=== PATIENT | female | born 1975 | race Caucasian/White ===

== ENCOUNTER 2016-08-08 01:05 | Emergency (ER) | payer BC ==
[~2016-08-08] VITALS: Ht 162.6 cm; Wt 63.5 kg
[2016-08-08 02:07] LABS: EOSINOPHILS % (AUTO) 5.6 % (0.0-3.0); LYMPHOCYTES % (AUTO) 19.1 % (20.0-45.0); MEAN CORPUSCULAR HEMOGLOBIN 30.1 PG (27.0-31.0); MEAN CORPUSCULAR HGB CONC 32.9 G/DL (32.0-36.0); MEAN CORPUSCULAR VOLUME 92 FL (80-99); MEAN PLATELET VOLUME 6.6 FL (6.5-10.1); MONOCYTES % (AUTO) 7.8 % (1.0-10.0); NEUTROPHILS % (AUTO) 66.5 % (45.0-75.0); PLATELET COUNT 250 K/UL (150-450); RED BLOOD COUNT 4.52 M/UL (4.20-5.40); RED CELL DISTRIBUTION WIDTH 11.9 % (11.6-14.8); WHITE BLOOD COUNT 9.7 K/UL (4.8-10.8)
--- NOTE | 2016-08-08 02:07 | Emergency Room Report ---
History of Present Illness General Chief Complaint: Chest Pain Source: Patient, EMS Present Illness HPI Is a 41-year-old female has no past medical history. She presents with chief complaint of possible allergic reaction and chest pressure palpitation. A week ago she had severe sore throat and fever. She took azithromycin as enough a brother. She took it and wasn't getting any better. She went to urgent care last night and receive a shot of Rocephin and Toradol. she said that the rapid strep was negative. Throat culture was sent. She said the swelling in her throat got better. She was prescribed Augmentin but she has not filled it yet. She woke up tonight feeling weak and has palpitation. Gill lightheaded. Gill numbness. Denies any rash or denies any fever or chills. No other complaint. Allergies: Coded Allergies: No Known Allergies (Unverified , 08/08/16) Patient History Past Medical History: none, see triage record, old chart reviewed Past Surgical History: none Pertinent Family History: none Social History: Denies: smoking Last Menstrual Period: "3 WEEKS AGO" Now: No Immunizations: other Reviewed Nursing Documentation: PMH: Agreed, PSxH: Agreed Nursing Documentation-PMH Past Medical History: No Stated History Review of Systems Constitutional: Reports: malaise Eye: Denies: blurred vision, eye pain ENT: Denies: ear pain, nose congestion, throat swelling Respiratory: Denies: cough, shortness of breath Cardiovascular: Reports: palpitations, Denies: chest pain Gastrointestinal: Denies: abdominal pain, diarrhea, nausea, vomiting Musculoskeletal: Denies: back pain, joint pain Skin: Denies: rash Neurological: Denies: headache, numbness Endocrine: Denies: increased thirst, increased urine Hematologic/Lymphatic: Denies: easy bruising All Other Systems: negative except mentioned in HPI Physical Exam Vital Signs Date Time Temp Pulse Resp B/P Pulse Ox O2 Delivery O2 Flow Rate FiO2 08/08/16 01:06 90 18 118/74 100 Room Air vitals normal Sp02 EP Interpretation: reviewed, normal General Appearance: well appearing, no apparent distress, alert Head: normocephalic, atraumatic Eyes: bilateral eye EOMI, bilateral eye PERRL ENT: hearing grossly normal, normal pharynx Neck: full range of motion, supple, no meningismus Respiratory: chest non-tender, lungs clear, normal breath sounds Cardiovascular #1: regular rate, rhythm, no murmur Gastrointestinal: normal bowel sounds, non tender, no mass, no organomegaly, no bruit, non-distended Musculoskeletal: back normal, gait/station normal, normal range of motion Psychiatric: mood/affect normal Skin: warm/dry Medical Decision Making Diagnostic Impression: Primary Impression: Weakness generalized Additional Impressions: Adverse drug effect Qualified Codes: T88.7XXA - Unspecified adverse effect of drug or medicament, initial encounter Acute tonsillitis Qualified Codes: J03.90 - Acute tonsillitis, unspecified ER Course Patient presents with palpitation and chest tightness. She took a picture her tonsils a week ago. They were enlarged, erythematous and had thick membranous exudates. the fact that she had a negative strep meeting this is more mononucleosis. She receive IV fluid here. Just as it was running she complaining of palpitations. On a monitor her heart rate went from the 80s to 90s. Blood pressure was normal. She thinks that is causing her symptoms worsen. I explained to her that this is normal saline and is not the cause. EKG Diagnostic Results Rate: normal Rhythm: NSR ST Segments: no acute changes Rhythm Strip Diag. Results EP Interpretation: yes Rate: 72 Rhythm: NSR, no PVC's, no ectopy Chest X-Ray Diagnostic Results EP Interpretation: Yes Findings: no consolidation, no effusion, no pneumothorax, no acute cardiopulmonary disease Number of Views: 1 Last Vital Signs Date Time Temp Pulse Resp B/P Pulse Ox O2 Delivery O2 Flow Rate FiO2 08/08/16 01:16 90 18 Room Air 08/08/16 01:06 118/74 100 Status: improved Disposition: HOME, SELF-CARE Condition: Stable Additional Instructions: Rest. Increase fluids. Followup with throat culture from urgent care. Return if symptom worsen. Followup with your DrLeticia in 7 days. ALEXIS MARTINES M.D. Aug 08, 2016 02:07
[2016-08-08 02:11] VITALS: BP 116/74
[2016-08-08 02:27] LABS: ANION GAP 14 (5-15); CALCIUM 8.8 mg/dL (8.6-10.2); CARBON DIOXIDE 24 mEQ/L (20-30); CHLORIDE 98 mEQ/L (98-107); CREATININE 0.8 mg/dL (0.5-0.9); GLOMERULAR FILTRATION RATE > 60 mL/min (>60); HEMOLYSIS 0; POTASSIUM 3.7 mEQ/L (3.4-4.9); SODIUM 136 mEQ/L (135-145)
[2016-08-08 03:51] VITALS: BP 101/64
--- NOTE | 2016-08-08 09:58 | Diagnostic Imaging Report ---
Indication: CP Technique: XRAY CHEST 1 V Comparison: None. Findings: The cardiomediastinal silhouette is normal. The lungs are clear. There is no evidence of pleural fluid. The bones are unremarkable. Impression: Normal chest.
--- NOTE | 2016-08-12 00:28 | Cardiology Report ---
APPROVED REPORT EKG Measurement Heart [id number] Normal sinus rhythm with sinus arrhythmia Normal ECG
== END 2016-08-08 04:01 | disposition home or self-care (01) ==
LOC: EDBD 01:05 → EMR 01:37
DX: R53.1 Weakness (principal); J03.90 Acute tonsillitis, unspecified; T88.7XXA Unspecified adverse effect of drug or medicament, initial encounter; X58.XXXA Exposure to other specified factors, initial encounter; Y92.9 Unspecified place or not applicable; Y99.8 Other external cause status
CPT/HCPCS: 36415; 71010; 80048; 85025; 86308; 93005; 96360; 99284; J2405